=== PATIENT | male | born 1940 | race Caucasian/White ===

== ENCOUNTER 2017-05-04 10:27 | Emergency (ER) | payer MEDICARE ==
[2017-05-04 10:43] VITALS: BP 152/71
--- NOTE | 2017-05-04 11:30 | UC ---
Throat Pain/Nasal Bob HPI - HPI Summary HPI Summary: chest congestion, ribs hurt to take a deep breath, no fever cough post nasal drip and sinus pain has been worsening over the past 2 weeks - History of Current Complaint Chief Complaint: UCRespiratory Stated Complaint: CONGESTION Time Seen by Provider: 05/04/17 11:23 Hx Obtained From: Patient Onset/Duration: Gradual Onset, Lasting Weeks - 2, Still Present Severity: Moderate Cough: Productive Associated Signs & Symptoms: Positive: Sinus Discomfort, Nasal Discharge - Allergies/Home Medications Allergies/Adverse Reactions: Allergies Allergy/AdvReac Type Severity Reaction Status Date / Time No Known Allergies Allergy Verified 05/04/17 10:43 Home Medications: Home Medications Amlodipine Besylate [Norvasc 5 mg tab] 10 05/04/17 [History] Aspirin TAB* [Aspirin 325 MG TAB*] 40 mg 05/04/17 [History] Clopidogrel TAB* [Plavix TAB*] 05/04/17 [History] Fenofibrate [Triglide] 160 mg PO 05/04/17 [History] PMH/Surg Hx/FS Hx/Imm Hx Previously Healthy: No Cardiovascular History: Cardiac Disease, Hypertension - Surgical History Surgical History: Yes Surgery Procedure, Year, and Place: quad bi-pass, epiglottis and lymph nodes d/ t [place] - Family History Known Family History: Positive: Cardiac Disease, Hypertension - Social History Occupation: Employed Full-time Lives: With Family Alcohol Use: None Substance Use Type: None Smoking Status (MU): Heavy Every Day Tobacco Smoker Type: Cigars Amount Used/How Often: ciggs in past, now cigars 2 per day Length of Time of Smoking/Using Tobacco: since age 20 Have You Smoked in the Last Year: Yes - Immunization History Most Recent Influenza Vaccination: NEVER Most Recent Pneumonia Vaccination: NEVER Review of Systems Constitutional: Negative Skin: Negative Eyes: Negative ENT: Sore Throat, Nasal Discharge, Sinus Congestion, Sinus Pain/Tenderness Respiratory: Cough Cardiovascular: Negative, Other - rib pain with deep breath Gastrointestinal: Negative Genitourinary: Negative Motor: Negative Neurovascular: Negative Musculoskeletal: Negative Neurological: Negative Psychological: Negative Is Patient Immunocompromised?: No All Other Systems Reviewed And Are Negative: Yes Physical Exam Triage Information Reviewed: Yes Appearance: Well-Appearing, No Pain Distress, Well-Nourished Vital Signs: Initial Vital Signs Temp 98.5 F 05/04/17 10:38 Pulse 69 11/27/17 10:38 Resp 20 05/04/17 10:38 BP 152/71 05/04/17 10:38 Pulse Ox 99 05/04/17 10:38 Vital Signs Reviewed: Yes Eye Exam: Normal Eyes: Positive: Conjunctiva Clear ENT Exam: Normal ENT: Positive: Normal ENT inspection, Hearing grossly normal, Pharynx normal, Nasal congestion, Nasal drainage, TMs normal, Sinus tenderness, Uvula midline. Negative: Tonsillar swelling, Tonsillar exudate, Trismus, Muffled voice, Hoarse voice, Dental tenderness Dental Exam: Normal Neck exam: Normal Neck: Positive: Supple, Nontender, No Lymphadenopathy Respiratory Exam: Normal Respiratory: Positive: Wheezing - left upper lobe Cardiovascular Exam: Normal Cardiovascular: Positive: RRR, No Murmur, Pulses Normal, Brisk Capillary Refill Musculoskeletal Exam: Normal Musculoskeletal: Positive: Strength Intact, ROM Intact, No Edema Neurological Exam: Normal Neurological: Positive: Alert, Muscle Tone Normal Psychological Exam: Normal Skin Exam: Normal Diagnostics - Radiology No standard instances Xray Interpretation: No Acute Changes Radiology Interpretation Completed By: ED Physician, Radiologist Throat Pain/Nasal Course/Dx - Course Assessment/Plan: augmentin, prednisone, flonase, albuterol increase fluids, refrain from cigars follow BP and symptoms with pcp in 1 week - Differential Dx/Diagnosis Provider Diagnoses: Acute rhinosinusitis, chest wall pain Discharge - Discharge Plan Condition: Stable Disposition: HOME Prescriptions: Albuterol HFA INHALER* [Ventolin HFA Inhaler*] 2 puff INH Q4H PRN #1 mdi PRN Reason: cough/ wheeze Albuterol HFA INHALER* [Ventolin HFA Inhaler*] 2 puff INH Q4H PRN #1 mdi PRN Reason: cough Amoxicillin/Clavulanate TAB* [Augmentin TAB 875*] 875 mg PO BID #20 tab Amoxicillin/Clavulanate TAB* [Augmentin TAB 875*] 875 mg PO BID #20 tab Fluticasone NASAL SPRAY 50MCG* [Flonase NASAL SPRAY 50MCG*] 2 spray BOTH NARES DAILY #1 btl Fluticasone NASAL SPRAY 50MCG* [Flonase NASAL SPRAY 50MCG*] 2 spray BOTH NARES DAILY #1 btl predniSONE TAB* [Deltasone TAB*] 20 mg PO DAILY #15 tab Patient Education Materials: Sinusitis (ED), Acute Bronchitis (ED), Hypertension (ED), Bronchospasm (ED) Referrals: Manish Schwarz NP [Primary Care Provider] - 1 Week
--- NOTE | 2017-05-04 12:02 | RAD ---
INDICATION: Left upper chest pain and cough COMPARISON: Similar chest x-ray dated June 07, 2016 TECHNIQUE: PA and lateral views of the chest were obtained. FINDINGS: Again seen are sternotomy wires. The heart and mediastinum are normal in size and contour. The lungs are grossly clear. There is no evidence of large pleural effusion. Degenerative changes of the thoracic spine includes loss of intervertebral disc height. There is no radiographic evidence of free air beneath the diaphragm IMPRESSION: No radiographic evidence of acute cardiopulmonary disease.
== END 2017-05-04 12:24 | disposition home or self-care (01) ==
LOC: UCCORT 10:27
DX: J01.90 Acute sinusitis, unspecified (principal); R07.89 Other chest pain; I11.9 Hypertensive heart disease without heart failure; Z95.1 Presence of aortocoronary bypass graft; F17.210 Nicotine dependence, cigarettes, uncomplicated
CPT/HCPCS: 71020; 99212; G0463